=== PATIENT | male | born 1965 | race Caucasian/White ===

== ENCOUNTER → 2021-04-14 | Day surgery (SDC) | payer OTHER ==
[~2021-04-14] MED LIST: AMLODIPINE BESY10 MG PO; FENTANYL CITRATE/PF 100MCG/2 ML INJ ONE; GLUCAGON FOR INJ 1 MG VIAL ONE; HYOSCYAMINE SULFATE 0.5 MG/ML INJ ONE; LIDOCAINE HCL 2% LOCAL INJ 5 ML SDV VIAL INJ ONE; MIDAZOLAM HCL 2 MG/2 ML VIAL ONE; PROPOFOL IV EMULSION 10 MG/ML 20 ML VIAL ONE; TRAMADOL HCL100 MG
[2021-04-14 12:45] VITALS: BP 112/80
== END | disposition home or self-care (01) ==
LOC: OR 09:27
PROVIDERS: ATTEND Internal Medicine Gastroenterology
DX: K62.5 Hemorrhage of anus and rectum (principal); D12.5 Benign neoplasm of sigmoid colon; K63.89 Other specified diseases of intestine; K74.60 Unspecified cirrhosis of liver; I85.10 Secondary esophageal varices without bleeding; K29.50 Unspecified chronic gastritis without bleeding; K76.6 Portal hypertension; K31.89 Other diseases of stomach and duodenum; K64.8 Other hemorrhoids; I10 Essential (primary) hypertension; K80.20 Calculus of gallbladder without cholecystitis without obstruction; E66.9 Obesity, unspecified; M54.50 Low back pain, unspecified; M54.2 Cervicalgia; F17.290 Nicotine dependence, other tobacco product, uncomplicated; Z01.812 Encounter for preprocedural laboratory examination; Z20.822 Contact with and (suspected) exposure to COVID-19; Z79.899 Other long term (current) drug therapy; Z68.30 Body mass index [BMI] 30.0-30.9, adult
CPT/HCPCS: 43239; 45380; 45381; 45385; J1610; J1980; J2001; J2250; J2704; J3010; U0002

== ENCOUNTER → 2021-04-26 | Outpatient (CLI) | payer OTHER ==
[~2021-04-26] MED LIST changes: -FENTANYL CITRATE/PF 100MCG/2 ML INJ ONE; -GLUCAGON FOR INJ 1 MG VIAL ONE; -HYOSCYAMINE SULFATE 0.5 MG/ML INJ ONE; -LIDOCAINE HCL 2% LOCAL INJ 5 ML SDV VIAL INJ ONE; -MIDAZOLAM HCL 2 MG/2 ML VIAL ONE; -PROPOFOL IV EMULSION 10 MG/ML 20 ML VIAL ONE
== END ==
LOC: MRI 13:33
PROVIDERS: ATTEND Surgery
DX: M54.6 Pain in thoracic spine (principal); M54.50 Low back pain, unspecified
CPT/HCPCS: 72146; 72148

== ENCOUNTER 2021-05-10 06:55 | Inpatient (IN) | payer OTHER ==
[2021-05-08 15:38] LABS: BASOPHILS % 0.4 % (0.0-1.0); EOSINOPHILS # (AUTO) 0.1 (0.0-0.4); EOSINOPHILS % 1.6 % (0.0-6.0); HEMATOCRIT 43.2 % (38.2-49.6); HEMOGLOBIN 13.4 g/dL (14.0-18.0); LYMPHOCYTES # (AUTO) 0.9 (1.0-3.2); MEAN CORPUSCULAR HEMOGLOBIN 26.2 pg (28-32); MEAN CORPUSCULAR VOLUME 84.5 fL (81-99); MONOCYTES # (AUTO) 0.6 (0.2-0.8); MONOCYTES % 10.4 % (4.4-11.3); NEUTROPHILS # (AUTO) 3.9 (2.1-6.9); NEUTROPHILS % 70.6 % (38.7-80.0); PLATELET COUNT 136 x10e3/uL (140-360); RED BLOOD COUNT 5.11 x10e6/uL (4.3-5.7); RED CELL DISTRIBUTION WIDTH 13.7 % (11.7-14.4)
[2021-05-08 15:48] LABS: INR 1.11; PROTHROMBIN TIME 15.1 seconds (11.9-14.5)
[2021-05-08 15:55] LABS: ALBUMIN 3.9 g/dL (3.5-5.0); ANION GAP 13.5 mmol/L (8-16); CALCIUM 9.2 mg/dL (8.4-10.2); CREATININE, SERUM 1.15 mg/dL (0.72-1.25); POTASSIUM 3.5 mmol/L (3.5-5.1)
[2021-05-10] VITALS (24 sets, daily range): BP systolic 111–146; BP diastolic 80–108
[~2021-05-10] VITALS: Ht 182.9 cm; Wt 109.5 kg
[~2021-05-10 06:55] MED LIST changes: +CEPHALEXIN500 MG PO; +PROTONIX20 MG PO; -TRAMADOL HCL100 MG; +TRAMADOL HCL100 MG PO
[2021-05-10] MEDS ORDERED: POVIDONE IODINE 0.05% 0.05 % ML PO ONE (12:53)
[2021-05-10] MEDS ORDERED: ROCURONIUM BROMIDE 10 MG/ML 5ML VIAL IV ONE (12:53)
[2021-05-10] MEDS ORDERED: LIDOCAINE HCL 2% LOCAL INJ 5 ML SDV VIAL INJ ONE (12:53)
[2021-05-10] MEDS ORDERED: SEVOFLURANE INHAL SOLN 250 ML PEN BTL ONE (12:53)
[2021-05-10] MEDS ORDERED: NEOSTIGMINE 1 MG/ML 10ML VIAL ONE (12:53)
[2021-05-10] MEDS ORDERED: DEXAMETHASONE SOD PHOS INJ 4 MG/ML SDV ONE (12:53)
[2021-05-10] MEDS ORDERED: PROPOFOL IV EMULSION 10 MG/ML 20 ML VIAL ONE (12:53)
[2021-05-10] MEDS ORDERED: GLYCOPYRROLATE INJ 0.2 MG/ML VIAL ONE (12:53)
[2021-05-10] MEDS ORDERED: ONDANSETRON HCL INJ 2MG/ML 2ML 2 MG/ML VIAL ONE (12:53)
[2021-05-10] MEDS ORDERED: MIDAZOLAM HCL 2 MG/2 ML VIAL ONE (13:22)
[2021-05-10] MEDS ORDERED: FENTANYL CITRATE/PF 100MCG/2 ML INJ ONE (13:22)
[2021-05-10] MEDS ORDERED: BUPIVACAINE LIPOSOME/PF 266 MG/20 ML IJ ONE (14:24)
[2021-05-10] MEDS ORDERED: BUPIVACAINE 0.25% 30ML SDV ONE (14:29)
[2021-05-10] MEDS ORDERED: NALOXONE HCL INJ 0.4 MG/ML AMP IV PRN (15:00)
[2021-05-10] MEDS: HYDROMORPHONE 0.2MG/ML-SOD CHL 30ML PCA SYRINGE IV PRN (15:22)
[2021-05-10] MEDS ORDERED: ACETAMINOPHEN 1000 MG/100 ML IV PRN (18:00)
[2021-05-10] MEDS: SODIUM CHLORIDE 0.9% 250ML IRRIG IR SCH ×3 (18:28→23:16)
[2021-05-10] MEDS: SODIUM CHLORIDE 0.9% 1000ML 1,000 ML IV SCH ×2 (18:28→20:35)
[2021-05-10] MEDS: CEFTRIAXONE 2 GM in SODIUM CHLORIDE 0.9% 100 ML IV SCH (18:29)
[2021-05-10] MEDS: Cefoxitin 1 GM in SODIUM CHLORIDE 0.9% 50ML 50 ML IV SCH ×2 (18:38→23:16)
[2021-05-10] MEDS: NITROGLYCERIN 2% OINT 1 GM PKT TOP SCH ×2 (18:38→23:16)
[2021-05-11] VITALS (42 sets, daily range): BP systolic 121–167; BP diastolic 77–102
[2021-05-11] MEDS: SODIUM CHLORIDE 0.9% 1000ML 1,000 ML IV SCH ×4 (01:47→22:27)
[2021-05-11] MEDS: SODIUM CHLORIDE 0.9% 250ML IRRIG IR SCH ×6 (01:47→23:06)
[2021-05-11] MEDS: HYDROMORPHONE 0.2MG/ML-SOD CHL 30ML PCA SYRINGE IV PRN ×2 (03:50→20:37)
[2021-05-11 05:12] LABS: BASOPHILS % 0.1 % (0.0-1.0); HEMATOCRIT 35.4 % (38.2-49.6); HEMOGLOBIN 11.2 g/dL (14.0-18.0); LYMPHOCYTES # (AUTO) 0.8 (1.0-3.2); LYMPHOCYTES % 4.7 % (18.0-39.1); MEAN CORPUSCULAR HEMOGLOBIN 26.3 pg (28-32); MEAN CORPUSCULAR HGB CONC 31.6 g/dL (31-35); MEAN CORPUSCULAR VOLUME 83.1 fL (81-99); MONOCYTES # (AUTO) 1.2 (0.2-0.8); MONOCYTES % 7.3 % (4.4-11.3); NEUTROPHILS # (AUTO) 14.4 (2.1-6.9); NEUTROPHILS % 87.2 % (38.7-80.0); PLATELET COUNT 202 x10e3/uL (140-360); RED BLOOD COUNT 4.26 x10e6/uL (4.3-5.7)
[2021-05-11] MEDS: NITROGLYCERIN 2% OINT 1 GM PKT TOP SCH ×3 (05:31→17:31)
[2021-05-11] MEDS: ONDANSETRON HCL INJ 2MG/ML 2ML 2 MG/ML VIAL IV PRN ×5 (05:31→20:37)
[2021-05-11 05:39] LABS: INR 1.19; PROTHROMBIN TIME 15.9 seconds (11.9-14.5)
[2021-05-11 05:55] LABS: ALBUMIN 2.5 g/dL (3.5-5.0); ANION GAP 12.5 mmol/L (8-16); CREATININE, SERUM 0.82 mg/dL (0.72-1.25); POTASSIUM 4.5 mmol/L (3.5-5.1)
[2021-05-11 06:18] LABS: CALCIUM 6.6 mg/dL (8.4-10.2)
[2021-05-11] MEDS: CEFTRIAXONE 2 GM in SODIUM CHLORIDE 0.9% 100 ML IV SCH (17:31)
[2021-05-12] VITALS (24 sets, daily range): BP systolic 136–166; BP diastolic 80–97
[2021-05-12] MEDS: NITROGLYCERIN 2% OINT 1 GM PKT TOP SCH ×4 (00:02→17:00)
[2021-05-12] MEDS: ONDANSETRON HCL INJ 2MG/ML 2ML 2 MG/ML VIAL IV PRN ×5 (00:03→16:00)
[2021-05-12] MEDS: SODIUM CHLORIDE 0.9% 250ML IRRIG IR SCH ×4 (03:08→14:42)
[2021-05-12] MEDS: SODIUM CHLORIDE 0.9% 1000ML 1,000 ML IV SCH ×3 (06:06→23:30)
[2021-05-12 10:59] LABS: BASOPHILS % 0.1 % (0.0-1.0); HEMATOCRIT 32.6 % (38.2-49.6); HEMOGLOBIN 9.9 g/dL (14.0-18.0); LYMPHOCYTES # (AUTO) 1.3 (1.0-3.2); LYMPHOCYTES % 10.6 % (18.0-39.1); MEAN CORPUSCULAR HEMOGLOBIN 26.4 pg (28-32); MEAN CORPUSCULAR HGB CONC 30.4 g/dL (31-35); MEAN CORPUSCULAR VOLUME 86.9 fL (81-99); MONOCYTES # (AUTO) 1.4 (0.2-0.8); MONOCYTES % 10.9 % (4.4-11.3); NEUTROPHILS # (AUTO) 9.7 (2.1-6.9); NEUTROPHILS % 77.7 % (38.7-80.0); PLATELET COUNT 155 x10e3/uL (140-360); RED BLOOD COUNT 3.75 x10e6/uL (4.3-5.7); RED CELL DISTRIBUTION WIDTH 14.6 % (11.7-14.4)
[2021-05-12] MEDS: HYDROMORPHONE 0.2MG/ML-SOD CHL 30ML PCA SYRINGE IV PRN ×2 (11:23→23:13)
[2021-05-12 11:43] LABS: ANION GAP 12.2 mmol/L (8-16); CREATININE, SERUM 0.83 mg/dL (0.72-1.25); POTASSIUM 4.2 mmol/L (3.5-5.1)
[2021-05-12 11:45] LABS: ALBUMIN 3.1 g/dL (3.5-5.0); CALCIUM 8.3 mg/dL (8.4-10.2)
[2021-05-12] MEDS: CEFTRIAXONE 2 GM in SODIUM CHLORIDE 0.9% 100 ML IV SCH (17:00)
[2021-05-13] VITALS (24 sets, daily range): BP systolic 134–172; BP diastolic 63–93
[2021-05-13] MEDS: NITROGLYCERIN 2% OINT 1 GM PKT TOP SCH ×4 (00:03→17:23)
[2021-05-13 06:10] LABS: BASOPHILS % 0.1 % (0.0-1.0); EOSINOPHILS % 0.4 % (0.0-6.0); HEMATOCRIT 30.8 % (38.2-49.6); HEMOGLOBIN 9.5 g/dL (14.0-18.0); LYMPHOCYTES # (AUTO) 1.1 (1.0-3.2); LYMPHOCYTES % 14.9 % (18.0-39.1); MEAN CORPUSCULAR HEMOGLOBIN 26.8 pg (28-32); MEAN CORPUSCULAR HGB CONC 30.8 g/dL (31-35); MONOCYTES # (AUTO) 0.8 (0.2-0.8); MONOCYTES % 10.7 % (4.4-11.3); NEUTROPHILS # (AUTO) 5.4 (2.1-6.9); NEUTROPHILS % 73.1 % (38.7-80.0); PLATELET COUNT 130 x10e3/uL (140-360); RED BLOOD COUNT 3.54 x10e6/uL (4.3-5.7); RED CELL DISTRIBUTION WIDTH 14.2 % (11.7-14.4)
[2021-05-13 06:52] LABS: ALBUMIN 2.9 g/dL (3.5-5.0); ALBUMIN/GLOBULIN RATIO 0.9 (0.8-2.0); ANION GAP 10.7 mmol/L (8-16); CALCIUM 8.4 mg/dL (8.4-10.2); CREATININE, SERUM 0.72 mg/dL (0.72-1.25); POTASSIUM 3.7 mmol/L (3.5-5.1)
[2021-05-13] MEDS: SODIUM CHLORIDE 0.9% 1000ML 1,000 ML IV SCH (09:27)
[2021-05-13] MEDS: HYDROMORPHONE 0.2MG/ML-SOD CHL 30ML PCA SYRINGE IV PRN (09:28)
[2021-05-13] MEDS: CEFTRIAXONE 2 GM in SODIUM CHLORIDE 0.9% 100 ML IV SCH (16:07)
[2021-05-13] MEDS: HYDROMORPHONE 1MG/1ML INJ IV PRN (19:35)
[2021-05-14] VITALS (10 sets, daily range): BP systolic 125–180; BP diastolic 79–109
[2021-05-14] MEDS: NITROGLYCERIN 2% OINT 1 GM PKT TOP SCH ×4 (00:38→18:05)
[2021-05-14] MEDS: SODIUM CHLORIDE 0.9% 1000ML 1,000 ML IV SCH ×2 (00:38→14:28)
[2021-05-14] MEDS: HYDROMORPHONE 1MG/1ML INJ IV PRN ×3 (00:38→16:18)
[2021-05-14] MEDS: HYDROCODONE/APAP 7.5MG-325MG 1 EA TAB PO PRN ×3 (02:22→19:35)
[2021-05-14 05:28] LABS: BASOPHILS % 0.2 % (0.0-1.0); EOSINOPHILS # (AUTO) 0.1 (0.0-0.4); EOSINOPHILS % 1.4 % (0.0-6.0); HEMATOCRIT 31.3 % (38.2-49.6); HEMOGLOBIN 9.6 g/dL (14.0-18.0); LYMPHOCYTES # (AUTO) 0.7 (1.0-3.2); LYMPHOCYTES % 13.3 % (18.0-39.1); MEAN CORPUSCULAR HEMOGLOBIN 26.4 pg (28-32); MEAN CORPUSCULAR HGB CONC 30.7 g/dL (31-35); MONOCYTES # (AUTO) 0.5 (0.2-0.8); MONOCYTES % 9.8 % (4.4-11.3); NEUTROPHILS # (AUTO) 3.8 (2.1-6.9); NEUTROPHILS % 74.7 % (38.7-80.0); PLATELET COUNT 125 x10e3/uL (140-360); RED BLOOD COUNT 3.64 x10e6/uL (4.3-5.7)
[2021-05-14] MEDS: AMLODIPINE BESYLATE 10 MG TAB PO SCH (07:58)
[2021-05-14] MEDS: ONDANSETRON HCL INJ 2MG/ML 2ML 2 MG/ML VIAL IV PRN (07:58)
[2021-05-14] MEDS: CEFTRIAXONE 2 GM in SODIUM CHLORIDE 0.9% 100 ML IV SCH (16:22)
[2021-05-14] MEDS: BISACODYL 10 MG SUPP PR SCH (21:00)
[2021-05-15] VITALS (7 sets, daily range): BP systolic 120–154; BP diastolic 74–98
[2021-05-15] MEDS: NITROGLYCERIN 2% OINT 1 GM PKT TOP SCH ×4 (00:22→18:07)
[2021-05-15] MEDS: SODIUM CHLORIDE 0.9% 1000ML 1,000 ML IV SCH ×2 (04:08→20:12)
[2021-05-15] MEDS: HYDROMORPHONE 1MG/1ML INJ IV PRN ×5 (05:35→21:47)
[2021-05-15] MEDS: BISACODYL 10 MG SUPP PR SCH (09:46)
[2021-05-15] MEDS: AMLODIPINE BESYLATE 10 MG TAB PO SCH (09:47)
[2021-05-15] MEDS: HYDROCODONE/APAP 7.5MG-325MG 1 EA TAB PO PRN ×2 (11:50→15:58)
[2021-05-15] MEDS: CEFTRIAXONE 2 GM in SODIUM CHLORIDE 0.9% 100 ML IV SCH (18:07)
[2021-05-16] VITALS: BP 127/94
[2021-05-16] MEDS: HYDROCODONE/APAP 7.5MG-325MG 1 EA TAB PO PRN ×3 (02:49→14:50)
[2021-05-16 03:55] VITALS: BP 146/91
[2021-05-16 05:39] LABS: BASOPHILS % 0.3 % (0.0-1.0); EOSINOPHILS # (AUTO) 0.1 (0.0-0.4); EOSINOPHILS % 3.6 % (0.0-6.0); HEMATOCRIT 30.8 % (38.2-49.6); HEMOGLOBIN 9.7 g/dL (14.0-18.0); LYMPHOCYTES # (AUTO) 0.6 (1.0-3.2); LYMPHOCYTES % 14.8 % (18.0-39.1); MEAN CORPUSCULAR HEMOGLOBIN 26.1 pg (28-32); MEAN CORPUSCULAR HGB CONC 31.5 g/dL (31-35); MEAN CORPUSCULAR VOLUME 82.8 fL (81-99); MONOCYTES # (AUTO) 0.7 (0.2-0.8); MONOCYTES % 16.9 % (4.4-11.3); NEUTROPHILS # (AUTO) 2.5 (2.1-6.9); NEUTROPHILS % 63.9 % (38.7-80.0); PLATELET COUNT 124 x10e3/uL (140-360); RED BLOOD COUNT 3.72 x10e6/uL (4.3-5.7); RED CELL DISTRIBUTION WIDTH 14.5 % (11.7-14.4)
[2021-05-16] MEDS: NITROGLYCERIN 2% OINT 1 GM PKT TOP SCH ×4 (06:00→18:00)
[2021-05-16 06:17] LABS: ALBUMIN 2.8 g/dL (3.5-5.0); ALBUMIN/GLOBULIN RATIO 0.9 (0.8-2.0); ANION GAP 10.7 mmol/L (8-16); CALCIUM 7.8 mg/dL (8.4-10.2); CREATININE, SERUM 0.81 mg/dL (0.72-1.25); MAGNESIUM 1.8 MG/DL (1.3-2.1); POTASSIUM 3.7 mmol/L (3.5-5.1)
[2021-05-16] MEDS: HYDROMORPHONE 1MG/1ML INJ IV PRN ×2 (07:27→16:45)
[2021-05-16 07:58] VITALS: BP 157/89
[2021-05-16 08:00] VITALS: BP 157/89
[2021-05-16] MEDS: AMLODIPINE BESYLATE 10 MG TAB PO SCH (09:31)
[2021-05-16 12:00] VITALS: BP 142/87
[2021-05-16 16:00] VITALS: BP_SYST 112; BP_SYST 142; BP_DIAS 61; BP_DIAS 88
[2021-05-16] MEDS: SODIUM CHLORIDE 0.9% 1000ML 1,000 ML IV SCH (16:12)
[2021-05-16] MEDS: CEFTRIAXONE 2 GM in SODIUM CHLORIDE 0.9% 100 ML IV SCH (18:06)
[2021-05-16] MEDS ORDERED: ONDANSETRON HCL 4 MG ORAL DISINTEGRATING TAB PO PRN (18:45)
[2021-05-17] MEDS ORDERED: PANTOPRAZOLE SOD 40 MG TABEC PO SCH (07:30)
== END 2021-05-16 18:37 | disposition home or self-care (01) | DRG 330 ==
LOC: OR 06:55 → PACU V 14:53 → ICU 16:00 → MED/SURG 05-13 20:36
PROVIDERS: ADMIT Surgery; ATTEND Surgery
PROC: 0FB10ZX Excision of Right Lobe Liver, Open Approach, Diagnostic (ICD-10-PCS; 2021-05-10)
PROC: 0DBP0ZZ Excision of Rectum, Open Approach (ICD-10-PCS; principal; 2021-05-10 09:00)
PROC: 0DBN0ZZ Excision of Sigmoid Colon, Open Approach (ICD-10-PCS; 2021-05-10 09:00)
PROC: 0FT40ZZ Resection of Gallbladder, Open Approach (ICD-10-PCS; 2021-05-10 09:00)
DX: C18.7 Malignant neoplasm of sigmoid colon (principal); K80.10 Calculus of gallbladder with chronic cholecystitis without obstruction; I10 Essential (primary) hypertension; F10.21 Alcohol dependence, in remission; K82.8 Other specified diseases of gallbladder; K74.60 Unspecified cirrhosis of liver; Z72.0 Tobacco use; Z20.822 Contact with and (suspected) exposure to COVID-19
CPT/HCPCS: 36415; 71046; 80053; 83735; 85025; 85610; 85730; 86850; 86900; 88304; 88305; 88307; 88309; 88313; 88342; 93005; 94799; 96360; 97139; J0694; J0696; J1100; J1170; J2001; J2250; J2405; J2710; J3010; J7030; J7050; U0002

== ENCOUNTER → 2021-06-23 | Outpatient (CLI) | payer OTHER ==
[~2021-06-23] MED LIST changes: +IOPAMIDOL 370 MG/ML 200 ML INFUS..BTL INJ ONE; +SODIUM CHLORIDE 0.9% 50ML 50 ML ONE
== END ==
LOC: CT 15:33
PROVIDERS: ATTEND Internal Medicine Hematology & Oncology
DX: I85.00 Esophageal varices without bleeding (principal); C18.9 Malignant neoplasm of colon, unspecified; C18.7 Malignant neoplasm of sigmoid colon; K29.60 Other gastritis without bleeding; K76.6 Portal hypertension; K21.9 Gastro-esophageal reflux disease without esophagitis; B18.2 Chronic viral hepatitis C; K70.30 Alcoholic cirrhosis of liver without ascites; Z90.49 Acquired absence of other specified parts of digestive tract; E55.9 Vitamin D deficiency, unspecified; K59.00 Constipation, unspecified; D50.0 Iron deficiency anemia secondary to blood loss (chronic); D64.9 Anemia, unspecified; Z51.11 Encounter for antineoplastic chemotherapy
CPT/HCPCS: 71260; Q9967

== ENCOUNTER 2021-11-14 16:15 | Emergency (ER) | payer OTHER ==
[~2021-11-14] VITALS: Ht 365.8 cm; Wt 109.3 kg
[~2021-11-14 16:15] MED LIST changes: -IOPAMIDOL 370 MG/ML 200 ML INFUS..BTL INJ ONE; -SODIUM CHLORIDE 0.9% 50ML 50 ML ONE
[2021-11-14] MEDS ORDERED: PROMETHAZINE/CODEINE 5 ML UDC PO NR (16:40)
[2021-11-14 16:52] LABS: BASOPHILS % 0.2 % (0.0-1.0); HEMATOCRIT 45.5 % (38.2-49.6); HEMOGLOBIN 15.4 g/dL (14.0-18.0); LYMPHOCYTES # (AUTO) 0.8 (1.0-3.2); LYMPHOCYTES % 15.3 % (18.0-39.1); MEAN CORPUSCULAR HEMOGLOBIN 32.1 pg (28-32); MEAN CORPUSCULAR HGB CONC 33.8 g/dL (31-35); MEAN CORPUSCULAR VOLUME 94.8 fL (81-99); MONOCYTES # (AUTO) 0.8 (0.2-0.8); MONOCYTES % 17.1 % (4.4-11.3); NEUTROPHILS # (AUTO) 3.3 (2.1-6.9); NEUTROPHILS % 67.2 % (38.7-80.0); PLATELET COUNT 72 x10e3/uL (140-360); RED CELL DISTRIBUTION WIDTH 13.2 % (11.7-14.4)
[2021-11-14 17:29] LABS: ANION GAP 15.1 mmol/L (8-16); CALCIUM 9.2 mg/dL (8.4-10.2); CREATININE, SERUM 0.91 mg/dL (0.72-1.25); POTASSIUM 4.1 mmol/L (3.5-5.1)
[2021-11-14] MEDS ORDERED: DECADRON4 M1 PO (17:40)
[2021-11-14] MEDS ORDERED: ACETAMINOPHEN-1 EAC4 PO (17:45)
[2021-11-14 17:50] LABS: PLATELET ESTIMATE MODERATELY DECREASED; PLATELET MORPHOLOGY COMMENT FEW EDTA CLUMPING; RBC MORPHOLOGY COMMENT NORMAL
[2021-11-14 17:59] VITALS: BP 119/76
== END 2021-11-14 18:01 | disposition home or self-care (01) ==
LOC: ER 16:19
DX: R05.9 Cough, unspecified (principal); U07.1 COVID-19; D69.6 Thrombocytopenia, unspecified; I10 Essential (primary) hypertension; K21.9 Gastro-esophageal reflux disease without esophagitis; Z85.038 Personal history of other malignant neoplasm of large intestine; Z98.0 Intestinal bypass and anastomosis status
CPT/HCPCS: 36415; 71045; 80048; 83518; 85025; 87070; 99284; U0002

== ENCOUNTER → 2022-02-05 | Outpatient (CLI) | payer OTHER ==
[~2022-02-05] MED LIST changes: +ACETAMINOPHEN-1 EAC4 PO; +DECADRON4 M1 PO; +DIATRIZOATE MEGL/DIATRIZOA SOD 30 ML BTL PO ONE; +IOPAMIDOL 370 MG/ML 100 ML INFUS..BTL INJ ONE
[2022-02-05 11:40] LABS: CREATININE, SERUM 0.96 mg/dL (0.72-1.25)
== END ==
LOC: CT 10:55
PROVIDERS: ATTEND Internal Medicine Hematology & Oncology
DX: C18.7 Malignant neoplasm of sigmoid colon (principal); K59.00 Constipation, unspecified; D50.0 Iron deficiency anemia secondary to blood loss (chronic); D64.9 Anemia, unspecified
CPT/HCPCS: 36415; 71260; 74177; 82565; 84520; Q9963; Q9967

== ENCOUNTER → 2022-05-08 | Outpatient (CLI) | payer OTHER ==
[~2022-05-08] MED LIST changes: -IOPAMIDOL 370 MG/ML 100 ML INFUS..BTL INJ ONE
[2022-05-08 09:59] LABS: CREATININE, SERUM 0.89 mg/dL (0.72-1.25)
[2022-05-08 10:35] LABS: BASOPHILS % 0.5 % (0.0-1.0); EOSINOPHILS # (AUTO) 0.1 (0.0-0.4); EOSINOPHILS % 1.6 % (0.0-6.0); HEMATOCRIT 45.7 % (38.2-49.6); HEMOGLOBIN 15.5 g/dL (14.0-18.0); LYMPHOCYTES # (AUTO) 1.6 (1.0-3.2); LYMPHOCYTES % 24.4 % (18.0-39.1); MEAN CORPUSCULAR HEMOGLOBIN 29.9 pg (28-32); MEAN CORPUSCULAR HGB CONC 33.9 g/dL (31-35); MEAN CORPUSCULAR VOLUME 88.1 fL (81-99); MONOCYTES # (AUTO) 0.7 (0.2-0.8); MONOCYTES % 11.2 % (4.4-11.3); PLATELET COUNT 99 x10e3/uL (140-360); RED BLOOD COUNT 5.19 x10e6/uL (4.3-5.7); RED CELL DISTRIBUTION WIDTH 13.2 % (11.7-14.4)
[2022-05-08 11:20] LABS: ALBUMIN 4.4 g/dL (3.5-5.0); ALBUMIN/GLOBULIN RATIO 1.3 (0.8-2.0); ANION GAP 12.4 mmol/L (8-16); CALCIUM 9.1 mg/dL (8.4-10.2); CREATININE, SERUM 0.94 mg/dL (0.72-1.25); POTASSIUM 3.4 mmol/L (3.5-5.1)
== END ==
LOC: CT 09:07
PROVIDERS: ATTEND Surgery
DX: Z85.038 Personal history of other malignant neoplasm of large intestine (principal)
CPT/HCPCS: 36415; 71046; 74177; 80053; 82378; 82565; 84520; 85025; 93005; Q9963

== ENCOUNTER → 2022-05-18 | Day surgery (SDC) | payer OTHER ==
[~2022-05-18] MED LIST changes: +ALPRAZOLAM1 MG PO; +CENTRUM SILVER1 EAC6 PO; +CYMBALTA30 MG PO; -DIATRIZOATE MEGL/DIATRIZOA SOD 30 ML BTL PO ONE; +FENTANYL CITRATE/PF 100MCG/2 ML INJ ONE; +LIDOCAINE HCL 2% LOCAL INJ 5 ML SDV VIAL INJ ONE; +LORTAB 10 MG-3473 ML PO; +METHOCARBAMOL750 MG PO; +MIDAZOLAM HCL 2 MG/2 ML VIAL ONE; +VITAMIN D310 MCG PO
[2022-05-18 09:45] VITALS: BP 120/93
== END | disposition home or self-care (01) ==
LOC: OR 06:18
PROVIDERS: ATTEND Surgery
DX: Z48.3 Aftercare following surgery for neoplasm (principal); C18.9 Malignant neoplasm of colon, unspecified; Z98.0 Intestinal bypass and anastomosis status; Z90.49 Acquired absence of other specified parts of digestive tract; I10 Essential (primary) hypertension; K74.60 Unspecified cirrhosis of liver; M54.9 Dorsalgia, unspecified; G89.29 Other chronic pain; F41.9 Anxiety disorder, unspecified; Z79.899 Other long term (current) drug therapy
CPT/HCPCS: 45378; J2250; J3010; J2001

== ENCOUNTER 2023-05-29 10:00 | Observation (INO) | payer OTHER ==
[~2023-05-29] VITALS: Ht 182.9 cm; Wt 109.3 kg
[~2023-05-29 10:00] MED LIST changes: -FENTANYL CITRATE/PF 100MCG/2 ML INJ ONE; -LIDOCAINE HCL 2% LOCAL INJ 5 ML SDV VIAL INJ ONE; -MIDAZOLAM HCL 2 MG/2 ML VIAL ONE
[2023-05-29 10:14] VITALS: O2SAT 98
[2023-05-29 11:16] LABS: BASOPHILS % 0.4 % (0.0-1.0); EOSINOPHILS # (AUTO) 0.1 (0.0-0.4); EOSINOPHILS % 1.9 % (0.0-6.0); HEMATOCRIT 47.4 % (38.2-49.6); HEMOGLOBIN 15.8 g/dL (14.0-18.0); LYMPHOCYTES % 13.2 % (18.0-39.1); MEAN CORPUSCULAR HEMOGLOBIN 30.2 pg (28-32); MEAN CORPUSCULAR HGB CONC 33.3 g/dL (31-35); MEAN CORPUSCULAR VOLUME 90.5 fL (81-99); MONOCYTES # (AUTO) 0.7 (0.2-0.8); MONOCYTES % 9.5 % (4.4-11.3); NEUTROPHILS # (AUTO) 5.5 (2.1-6.9); NEUTROPHILS % 74.6 % (38.7-80.0); PLATELET COUNT 130 x10e3/uL (140-360); RED BLOOD COUNT 5.24 x10e6/uL (4.3-5.7); RED CELL DISTRIBUTION WIDTH 12.9 % (11.7-14.4); WHITE BLOOD COUNT 7.34 x10e3/uL (4.8-10.8)
[2023-05-29] MEDS: LORAZEPAM INJ 2 MG/ML VIAL IV ONE (11:39)
[2023-05-29 11:40] LABS: INR 1.07; PROTHROMBIN TIME 14.1 seconds (11.9-14.5)
[2023-05-29 11:41] LABS: ALBUMIN 4.7 g/dL (3.5-5.0); ALBUMIN/GLOBULIN RATIO 1.3 (0.8-2.0); ANION GAP 14.8 mmol/L (8-16); BILIRUBIN,TOTAL 1.2 mg/dL (0.2-1.2); CALCIUM 9.8 mg/dL (8.4-10.2); CREATININE, SERUM 0.87 mg/dL (0.72-1.25); MAGNESIUM 1.9 MG/DL (1.3-2.1); PARTIAL THROMBOPLASTIN TIME 35.2 seconds (23.8-35.5); POTASSIUM 3.8 mmol/L (3.5-5.1); TOTAL PROTEIN 8.4 g/dL (6.5-8.1)
[2023-05-29 11:47] LABS: TROPONIN I 0.002 ng/mL (0-0.300)
[2023-05-29] MEDS ORDERED: ONDANSETRON HCL INJ 2MG/ML 2ML 2 MG/ML VIAL IV PRN (12:00)
[2023-05-29] MEDS ORDERED: FAMOTIDINE 20 MG/2 ML VIAL IV SCH (12:00)
[2023-06-05] MEDS ORDERED: LIDOCAINE 2% (13:04)
== END 2023-05-29 13:59 | disposition left against medical advice (07) ==
LOC: ER 10:07 → ERHOLD 11:53
PROVIDERS: ADMIT Family Medicine Adult Medicine; ATTEND Family Medicine Adult Medicine
DX: K70.30 Alcoholic cirrhosis of liver without ascites (principal); N40.0 Benign prostatic hyperplasia without lower urinary tract symptoms; F41.9 Anxiety disorder, unspecified; F32.A Depression, unspecified; F43.10 Post-traumatic stress disorder, unspecified; I10 Essential (primary) hypertension; G47.00 Insomnia, unspecified; C18.9 Malignant neoplasm of colon, unspecified; C78.7 Secondary malignant neoplasm of liver and intrahepatic bile duct; C78.00 Secondary malignant neoplasm of unspecified lung; R07.89 Other chest pain; R10.9 Unspecified abdominal pain; Z79.899 Other long term (current) drug therapy; Z68.32 Body mass index [BMI] 32.0-32.9, adult; Z86.19 Personal history of other infectious and parasitic diseases; Z53.29 Procedure and treatment not carried out because of patient's decision for other reasons
CPT/HCPCS: 36415; 71045; 80053; 82140; 82550; 83690; 83735; 84484; 85025; 85610; 85730; 93005; 99284; C9113; G0378; J2060

== ENCOUNTER 2023-06-02 12:08 | Emergency (ER) | payer OTHER ==
[~2023-06-02] VITALS: Ht 365.8 cm; Wt 109.3 kg
[2023-06-02] MEDS ORDERED: PANTOPRAZOLE SO40 MG PO (12:23)
[2023-06-02] MEDS: BELLADONNA ALK/PHENOBARBITAL 5 ML UDC PO ONE (12:27)
[2023-06-02] MEDS: LIDOCAINE VISC 2% SOLN 15 ML UDC PO ONE (12:27)
[2023-06-02] MEDS: HYDROCODONE/APAP 7.5MG-325MG 1 EA TAB PO ONE (12:27)
[2023-06-02] MEDS: MAGNESIUM/ALUMINUM/SIMETHICONE 30 ML UDC PO ONE (12:27)
[2023-06-02 12:56] VITALS: BP 155/98; PULSE 68; RESP 16; TEMP 98.3; O2SAT 98
[2023-06-05] MEDS ORDERED: LIDOCAINE 2% (13:04)
== END 2023-06-02 12:57 | disposition home or self-care (01) ==
LOC: ER 12:12
DX: R10.84 Generalized abdominal pain (principal); C18.9 Malignant neoplasm of colon, unspecified; C78.7 Secondary malignant neoplasm of liver and intrahepatic bile duct; C78.00 Secondary malignant neoplasm of unspecified lung; K21.9 Gastro-esophageal reflux disease without esophagitis; I10 Essential (primary) hypertension; M54.9 Dorsalgia, unspecified; G89.29 Other chronic pain
CPT/HCPCS: 99283

== ENCOUNTER → 2023-07-18 | Outpatient (REF) | payer OTHER ==
[~2023-07-18] MED LIST changes: +CARAFATE1 GM PO; +COZAAR100 MG PO; +HYDROCODON-ACE1 EA12 PO; +INDERAL10 MG PO; +IOPAMIDOL 370 MG/ML 100 ML INFUS..BTL INJ ONE; +LIDOCAINE 2%; +MOVANTIK12.5 MG PO; +PANTOPRAZOLE SO40 MG PO
[2023-07-18 16:18] LABS: CREATININE, SERUM 1.02 mg/dL (0.72-1.25)
== END ==
LOC: CT 15:30
PROVIDERS: ATTEND Internal Medicine Hematology & Oncology
DX: C78.7 Secondary malignant neoplasm of liver and intrahepatic bile duct (principal); C78.00 Secondary malignant neoplasm of unspecified lung; R93.2 Abnormal findings on diagnostic imaging of liver and biliary tract; R91.8 Other nonspecific abnormal finding of lung field; F41.9 Anxiety disorder, unspecified
CPT/HCPCS: 36415; 71260; 82565; 84520; Q9967

== ENCOUNTER → 2023-10-14 | Outpatient (REF) | payer OTHER, MEDICARE ==
[2023-10-14 09:32] LABS: CREATININE, SERUM 0.73 mg/dL (0.72-1.25)
== END ==
LOC: CT 08:21
PROVIDERS: ATTEND Internal Medicine Hematology & Oncology
DX: C18.7 Malignant neoplasm of sigmoid colon (principal); D70.1 Agranulocytosis secondary to cancer chemotherapy; D69.6 Thrombocytopenia, unspecified; R21 Rash and other nonspecific skin eruption
CPT/HCPCS: 36415; 71260; 74177; 82565; 84520; Q9967

== ENCOUNTER → 2024-01-22 | Outpatient (REF) | payer OTHER, MEDICARE | LOC: CT 07:16 | PROVIDERS: ATTEND Internal Medicine Hematology & Oncology | DX: C78.00 Secondary malignant neoplasm of unspecified lung (principal); R91.8 Other nonspecific abnormal finding of lung field; R91.1 Solitary pulmonary nodule; R93.2 Abnormal findings on diagnostic imaging of liver and biliary tract; F41.9 Anxiety disorder, unspecified; Z13.31 Encounter for screening for depression; Z71.89 Other specified counseling; R10.84 Generalized abdominal pain; R11.2 Nausea with vomiting, unspecified; E86.0 Dehydration; D70.1 Agranulocytosis secondary to cancer chemotherapy; R21 Rash and other nonspecific skin eruption; D69.6 Thrombocytopenia, unspecified | CPT/HCPCS: 71260; 74177; Q9967 ==

== ENCOUNTER → 2024-02-21 | Outpatient (REF) | payer OTHER, MEDICARE ==
[~2024-02-21] MED LIST changes: -IOPAMIDOL 370 MG/ML 100 ML INFUS..BTL INJ ONE
[2024-02-21 09:28] LABS: INR 1.2; PROTHROMBIN TIME 15.9 seconds (11.9-14.5)
[2024-02-21 09:29] LABS: PARTIAL THROMBOPLASTIN TIME 34.9 seconds (23.8-35.5)
[2024-02-21 09:30] LABS: BASOPHILS % 0.4 % (0.0-1.0); EOSINOPHILS # (AUTO) 0.1 (0.0-0.4); EOSINOPHILS % 1.1 % (0.0-6.0); HEMATOCRIT 38.6 % (38.2-49.6); HEMOGLOBIN 11.9 g/dL (14.0-18.0); LYMPHOCYTES # (AUTO) 0.6 (1.0-3.2); LYMPHOCYTES % 5.2 % (18.0-39.1); MEAN CORPUSCULAR HEMOGLOBIN 30.3 pg (28-32); MEAN CORPUSCULAR HGB CONC 30.8 g/dL (31-35); MEAN CORPUSCULAR VOLUME 98.2 fL (81-99); MONOCYTES # (AUTO) 1.1 (0.2-0.8); MONOCYTES % 10.1 % (4.4-11.3); NEUTROPHILS # (AUTO) 9.1 (2.1-6.9); NEUTROPHILS % 81.1 % (38.7-80.0); PLATELET COUNT 61 x10e3/uL (140-360); RED BLOOD COUNT 3.93 x10e6/uL (4.3-5.7); WHITE BLOOD COUNT 11.24 x10e3/uL (4.8-10.8)
[2024-02-21 11:10] LABS: BODY FLUID APPEARANCE CLOUDY; BODY FLUID COLOR YELLOW; BODY FLUID TYPE ASCITES; RBC,BODY FLUID 6000 cells/uL; WBC,BODY FLUID 784 cells/uL
[2024-02-21 11:25] LABS: LYMPHOCYTES,BODY FLUID 33 %; MONO/MACROPHG,BODY FLUID 18 %; NEUTROPHILS,BODY FLUID 49 %; TOTAL CELLS COUNTED (DIFF) 100
== END ==
LOC: US 08:58
PROVIDERS: ATTEND Internal Medicine Hematology & Oncology
DX: R18.8 Other ascites (principal); C78.7 Secondary malignant neoplasm of liver and intrahepatic bile duct; C78.00 Secondary malignant neoplasm of unspecified lung
CPT/HCPCS: 36415; 49083; 82040; 84157; 85025; 85610; 85730; 88112; 88305; 88342; 89051

== ENCOUNTER → 2024-03-10 | Outpatient (REF) | payer OTHER, MEDICARE ==
[~2024-03-10] MED LIST changes: +IOPAMIDOL 370 MG/ML 100 ML INFUS..BTL INJ ONE
[2024-03-10 10:26] LABS: BLOOD UREA NITROGEN < 5 mg/dL (7-26); CREATININE, SERUM 0.63 mg/dL (0.72-1.25); EST GLOMERULAR FILTRATION RATE 109 ML/MIN (>=60)
[2024-03-10 10:27] LABS: BUN/CREATININE RATIO 8 (6-25)
== END ==
LOC: CT 09:14
PROVIDERS: ATTEND Internal Medicine Hematology & Oncology
DX: R18.8 Other ascites (principal); R16.0 Hepatomegaly, not elsewhere classified; E83.42 Hypomagnesemia; Z51.12 Encounter for antineoplastic immunotherapy
CPT/HCPCS: 36415; 71260; 74177; 82565; 84520; Q9967

== ENCOUNTER → 2024-06-04 | Outpatient (REF) | payer OTHER, MEDICARE ==
[~2024-06-04] MED LIST changes: -IOPAMIDOL 370 MG/ML 100 ML INFUS..BTL INJ ONE
== END ==
LOC: CT 14:18
PROVIDERS: ATTEND Internal Medicine Hematology & Oncology
DX: C78.7 Secondary malignant neoplasm of liver and intrahepatic bile duct (principal); C78.00 Secondary malignant neoplasm of unspecified lung; D70.1 Agranulocytosis secondary to cancer chemotherapy; D69.6 Thrombocytopenia, unspecified; E83.42 Hypomagnesemia; R10.84 Generalized abdominal pain; E86.0 Dehydration; R11.2 Nausea with vomiting, unspecified; R21 Rash and other nonspecific skin eruption; Z51.12 Encounter for antineoplastic immunotherapy
CPT/HCPCS: 71260; 74177

== ENCOUNTER → 2024-09-23 | Outpatient (REF) | payer OTHER, MEDICARE ==
[~2024-09-23] MED LIST changes: +IOPAMIDOL 370 MG/ML 100 ML INFUS..BTL INJ ONE
[2024-09-23 15:34] LABS: EST GLOMERULAR FILTRATION RATE 106.0 ML/MIN (>=60)
== END ==
LOC: CT 14:36
PROVIDERS: ATTEND Internal Medicine Hematology & Oncology
DX: Z85.038 Personal history of other malignant neoplasm of large intestine (principal)
CPT/HCPCS: 36415; 71270; 74178; 82565; 84520; Q9967

== ENCOUNTER → 2024-10-05 | Outpatient (REF) | payer OTHER, MEDICARE ==
[~2024-10-05] MED LIST changes: +ALBUMIN 25% 12.5GM 50ML 100 ML IV ONE; -IOPAMIDOL 370 MG/ML 100 ML INFUS..BTL INJ ONE
[2024-10-05 13:47] LABS: BASOPHILS % 0.5 % (0.0-1.0); EOSINOPHILS % 1.6 % (0.0-6.0); LYMPHOCYTES % 3.8 % (18.0-39.1); MONOCYTES % 9.3 % (4.4-11.3); NEUTROPHILS % 84.3 % (38.7-80.0); RED CELL DISTRIBUTION WIDTH 18.8 % (11.7-14.4)
[2024-10-05 14:07] LABS: INR 1.29
[2024-10-05 14:13] LABS: EST GLOMERULAR FILTRATION RATE 108.0 ML/MIN (>=60)
== END ==
LOC: US 13:20
PROVIDERS: ATTEND Internal Medicine Hematology & Oncology
DX: Z85.038 Personal history of other malignant neoplasm of large intestine (principal); D70.1 Agranulocytosis secondary to cancer chemotherapy; D69.6 Thrombocytopenia, unspecified; E83.42 Hypomagnesemia
CPT/HCPCS: 36415; 49083; 80053; 85025; 85610; 85730; C1729

== ENCOUNTER 2024-11-18 10:20 | Observation (INO) | payer OTHER, MEDICAID ==
[~2024-11-18] VITALS: Ht 188 cm; Wt 78.0 kg
[~2024-11-18 10:20] MED LIST changes: -ALBUMIN 25% 12.5GM 50ML 100 ML IV ONE
[2024-11-18] MEDS ORDERED: SODIUM CHLORIDE 0.9% 1000ML 1,000 ML IV STA (10:44)
[2024-11-18] MEDS ORDERED: ONDANSETRON HCL INJ 2MG/ML 2ML 2 MG/ML VIAL IV PRN (10:45)
[2024-11-18 11:26] LABS: BASOPHILS % 0.4 % (0.0-1.0); EOSINOPHILS % 2.1 % (0.0-6.0); LYMPHOCYTES % 8.0 % (18.0-39.1); MONOCYTES % 13.4 % (4.4-11.3); NEUTROPHILS % 75.7 % (38.7-80.0); RED CELL DISTRIBUTION WIDTH 17.2 % (11.7-14.4)
[2024-11-18 11:44] LABS: INR 1.46
[2024-11-18] MEDS: Morphine 4mg INJECTION 4 MG/ML INJ IV PRN (11:51)
[2024-11-18] MEDS: ONDANSETRON HCL INJ 2MG/ML 2ML 2 MG/ML VIAL IV PRN (11:51)
[2024-11-18 11:54] LABS: EST GLOMERULAR FILTRATION RATE 111.0 ML/MIN (>=60)
[2024-11-18 13:07] VITALS: PULSE 69; RESP 18; O2SAT 99
[2024-11-18] MEDS ORDERED: ALBUMIN 25% 12.5GM 50ML 100 ML IV ONE (13:30)
[2024-11-18 17:07] VITALS: PULSE 71; RESP 15; TEMP 97.9; O2SAT 99
== END 2024-11-18 17:00 | disposition hospice, home (50) ==
LOC: ER 10:46 → INTOOBSV 10:50 → ERHOLD 10:50
PROVIDERS: ADMIT Family Medicine Adult Medicine; ATTEND Family Medicine Adult Medicine
DX: K70.31 Alcoholic cirrhosis of liver with ascites (principal); B19.20 Unspecified viral hepatitis C without hepatic coma; K76.6 Portal hypertension; C18.9 Malignant neoplasm of colon, unspecified; C78.7 Secondary malignant neoplasm of liver and intrahepatic bile duct; C78.00 Secondary malignant neoplasm of unspecified lung; D61.818 Other pancytopenia; I10 Essential (primary) hypertension; N40.0 Benign prostatic hyperplasia without lower urinary tract symptoms; F43.10 Post-traumatic stress disorder, unspecified; F41.8 Other specified anxiety disorders; Z66 Do not resuscitate; F10.21 Alcohol dependence, in remission; Z87.891 Personal history of nicotine dependence
CPT/HCPCS: 36415; 49083; 74470; 80053; 83690; 85025; 85610; 93005; 94799; 99284; G0378; J2270; J2405